=== PATIENT | female | born 1970 | race Two or more races ===

== ENCOUNTER → 2020-04-15 | Day surgery (SDC) | payer OTHER ==
--- NOTE | 2020-04-16 15:31 | PATH ---
Surgical Pathology Report Patient Name: JIM YAO [facility]. Rec. #: [id number] /Age/Gender: 1970 (Age: 49) / F Account: [id number] Location: [facility] Taken: 04/15/2020 Received: 04/15/2020 Reported: 04/16/2020 Physicians: Radha Bowman M.D. Specimen(s) Received A: LEFT BREAST 4:00 1.1CM INTRADUCTAL MASS B: LEFT BREAST 4:00 0.5CM MASS Clinical History Palpable mass Ultrasound findings: Suspicious Final Diagnosis A. LEFT BREAST 4:00, 1.1CM INTRADUCTAL MASS, ULTRASOUND GUIDED CORE BIOPSY: BREAST TISSUE WITH FRAGMENTS OF INTRADUCTAL SCLEROSING PAPILLOMA. FOCAL STROMAL FIBROSIS AND CHRONIC INFLAMMATION PRESENT. B. LEFT BREAST 4:00, 0.5CM MASS, ULTRASOUND GUIDED CORE BIOPSY: BREAST TISSUE WITH INTRADUCTAL PAPILLOMA, FRAGMENTED. Electronically Signed Bernardo Becerra M.D. Gross Description A. Received in formalin labeled "left breast 4:00 #1," are 4 gray-yellow, cylindrical portions of fibroadipose tissue ranging from 0.2-1.0 cm in length and averaging 0.1 cm in diameter. The specimens are submitted in toto in one cassette. B. Received in formalin labeled "left breast 4:00 #2," are 4 gray-yellow, cylindrical portions of fibroadipose tissue ranging from 0.4-0.8 cm in length and averaging 0.1 cm in diameter. The specimens are submitted in toto in one cassette. Time to formalin fixation: Less than one minutes Total formalin fixation time: Approximately 8 hours. /04/15/2020 [facility]/04/15/2020
== END | disposition home or self-care (01) ==
LOC: JRADUS-SUR 08:57
PROVIDERS: ATTEND Registered Nurse
PROC: 0H9U3ZX Drainage of Left Breast, Percutaneous Approach, Diagnostic (ICD-10-PCS; principal; 2020-04-15)
DX: D24.2 Benign neoplasm of left breast (principal)
CPT/HCPCS: 19083; 19084; 87899; 88305-TC; A4648

== ENCOUNTER 2020-06-02 04:23 | Day surgery (SDC) | payer OTHER ==
[2020-05-30 11:37] VITALS: BMI 26.6
[2020-06-02 10:09] LABS: HEMATOCRIT 39.2 % (32.4-45.2); HEMOGLOBIN 12.8 GM/dL (10.7-15.3); MCH 22.6 pg (25.7-33.7); MCHC 32.6 g/dl (32.0-36.0); MEAN CELL VOLUME 69.6 fl (80-96); MEAN PLT VOLUME 8.2 fl (7.5-11.1); PLATELET COUNT 443 K/MM3 (134-434); RBC 5.63 M/mm3 (3.60-5.2); WHITE BLOOD COUNT 6.3 K/mm3 (4.0-10.0)
[2020-06-02 10:18] LABS: INR 0.92 (0.83-1.09); PROTHROMBIN TIME (PATIENT) 11.4 SEC (9.7-13.0)
[2020-06-02 10:37] LABS: POTASSIUM 4.4 mmol/L (3.5-5.1)
[2020-06-02 10:39] LABS: CALCIUM 9.1 mg/dL (8.5-10.1)
[2020-06-02 10:40] LABS: ALBUMIN 3.8 g/dl (3.4-5.0)
[2020-06-02 10:43] LABS: CREATININE 0.7 mg/dL (0.55-1.3)
[2020-06-02 10:44] LABS: BILIRUBIN,TOTAL 0.2 mg/dL (0.2-1)
[2020-06-02 10:45] LABS: BLOOD UREA NITROGEN 17.4 mg/dL (7-18); TOT PROT 8.1 g/dl (6.4-8.2)
[2020-06-02] MEDS ORDERED: ONDANSETRON 4 MG/2 ML VIAL IVPUSH PRN (12:26)
[2020-06-02] MEDS ORDERED: oxyCODONE HCL 5 MG TABLET PO PRN (12:26)
[2020-06-02] MEDS ORDERED: LACTATED RINGERS SOLUTION 1,000 ML IV SCH (12:30)
[2020-06-02 17:57] VITALS: BP 146/80; PULSE 96; TEMP 97.5
== END 2020-06-02 17:20 | disposition home or self-care (01) ==
LOC: JASU-SURG 04:23
PROVIDERS: ATTEND Obstetrics & Gynecology
PROC: 0UB98ZZ Excision of Uterus, Via Natural or Artificial Opening Endoscopic (ICD-10-PCS; principal; 2020-06-02 12:30)
DX: D25.9 Leiomyoma of uterus, unspecified (principal)
CPT/HCPCS: 36415; 80053; 84703; 85027; 85610; 86850; 86900; 86901; 88305-TC; 88307-TC; 94760

== ENCOUNTER 2020-06-24 04:59 | Day surgery (SDC) | payer OTHER ==
[2020-06-23 16:21] VITALS: BMI 27.4
[2020-06-24] MEDS ORDERED: LIDOCAINE HCL 1%, 10 MG/ML (20ML VIAL) ONE (14:23)
[2020-06-24] MEDS ORDERED: DEXAMETHASONE SOD PHOSPHATE 4 MG/1 ML VIAL ONE (15:06)
[2020-06-24] MEDS ORDERED: ONDANSETRON 4 MG/2 ML VIAL ONE (15:06)
[2020-06-24] MEDS ORDERED: LIDOCAINE HCL/PF 2% SDV 5ML VIAL ONE (15:06)
[2020-06-24] MEDS ORDERED: MIDAZOLAM HCL 2 MG/2 ML SINGLE DOSE VIAL ONE (15:06)
[2020-06-24] MEDS ORDERED: ceFAZolin SODIUM 1 GM VIAL IVPB ONE (15:42)
[2020-06-24] MEDS ORDERED: METHYLENE BLUE 50 MG/10 ML AMPUL ONE (15:44)
[2020-06-24] MEDS ORDERED: ceFAZolin SODIUM 1 GM VIAL ONE (15:44)
[2020-06-24] MEDS ORDERED: EPHEDRINE SULFATE/0.9% NACL/PF 50 MG/10 ML SYRINGE NR ONE (15:48)
[2020-06-24] MEDS ORDERED: LIDOCAINE HCL 1%, 10 MG/ML (20ML VIAL) INF ONE (16:01)
[2020-06-24] MEDS ORDERED: oxyCODONE HCL 5 MG TABLET PO PRN ×2 (17:11)
[2020-06-24] MEDS ORDERED: ONDANSETRON 4 MG/2 ML VIAL IVPUSH PRN (17:11)
[2020-06-24] MEDS ORDERED: ACETAMINOPHEN 325 MG TABLET (FP) PO PRN (17:11)
[2020-06-24] MEDS ORDERED: LACTATED RINGERS SOLUTION 1,000 ML IV SCH (17:15)
[2020-06-24 17:32] VITALS: TEMP 97.7
[2020-06-24 18:03] VITALS: BP 139/94; PULSE 75
[2020-06-24] MEDS ORDERED: ACETAMINOPHEN 325 MG TABLET (FP) ONE (18:10)
== END 2020-06-24 18:45 | disposition home or self-care (01) ==
LOC: JASU-SURG 04:59
PROVIDERS: ATTEND Surgery
PROC: 0WJ80ZZ Inspection of Chest Wall, Open Approach (ICD-10-PCS; 2020-06-24)
PROC: 0HBU0ZX Excision of Left Breast, Open Approach, Diagnostic (ICD-10-PCS; principal; 2020-06-24 13:00)
DX: D24.2 Benign neoplasm of left breast (principal); N64.52 Nipple discharge; N60.32 Fibrosclerosis of left breast; N60.12 Diffuse cystic mastopathy of left breast; N60.82 Other benign mammary dysplasias of left breast; N64.89 Other specified disorders of breast
CPT/HCPCS: 19281; 76098-TC-FY; 84703; 88307-TC; 94760; Q9968